=== PATIENT | female | born 1990 | race American Indian/Alaskan Native ===

== ENCOUNTER 2018-02-10 11:06 | Emergency (ER) | payer SELFPAY ==
[2018-02-10 11:14] VITALS: BP 101/67
== END 2018-02-10 15:50 | disposition left against medical advice (07) ==
LOC: ED 11:06
DX: M79.644 Pain in right finger(s) (principal); Z53.21 Procedure and treatment not carried out due to patient leaving prior to being seen by health care provider

== ENCOUNTER 2020-04-09 16:11 | Emergency (ER) | payer SELFPAY ==
[2020-04-09 17:30] VITALS: BP 111/78
== END 2020-04-09 19:23 | disposition left against medical advice (07) ==
LOC: ED 16:11
DX: R10.9 Unspecified abdominal pain (principal); Z53.21 Procedure and treatment not carried out due to patient leaving prior to being seen by health care provider

== ENCOUNTER 2021-02-05 18:14 | Emergency (ER) | payer SELFPAY ==
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
[2021-02-05 18:26] VITALS: BP 106/65
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
[2021-02-05] MEDS ORDERED: TETANUS,DIPH,PERTUSS(ACELL) VACCINE 0.5 ML SYRINGE IM ONE (19:20)
== END 2021-02-05 19:30 | disposition home or self-care (01) ==
LOC: ED 18:14
DX: S00.03XA Contusion of scalp, initial encounter (principal); S00.83XA Contusion of other part of head, initial encounter; F17.200 Nicotine dependence, unspecified, uncomplicated; Z98.51 Tubal ligation status; Z91.040 Latex allergy status; Z98.890 Other specified postprocedural states; Y04.8XXA Assault by other bodily force, initial encounter; Y93.89 Activity, other specified; Y92.89 Other specified places as the place of occurrence of the external cause; Y99.8 Other external cause status
CPT/HCPCS: 70450; 70486; 99283

== ENCOUNTER 2021-10-05 13:08 | Emergency (ER) | payer SELFPAY | END 2021-10-05 19:00 | disposition left against medical advice (07) | LOC: ED 13:08 | DX: U07.1 COVID-19 (principal); Z53.21 Procedure and treatment not carried out due to patient leaving prior to being seen by health care provider ==

== ENCOUNTER 2021-12-09 09:04 | Emergency (ER) | payer SELFPAY ==
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
[2021-12-09] MEDS ORDERED: LIDOCAINE-MPF (1%) 10 MG/1 ML VIAL 5 ML INFILTRATI ONE (14:18)
[2021-12-09 14:48] VITALS: BP 100/58
== END 2021-12-09 14:47 | disposition home or self-care (01) ==
LOC: ED 09:04
DX: S61.451A Open bite of right hand, initial encounter (principal); T19.2XXA Foreign body in vulva and vagina, initial encounter; L03.113 Cellulitis of right upper limb; Z98.890 Other specified postprocedural states; Z87.891 Personal history of nicotine dependence; Z91.041 Radiographic dye allergy status; Z91.040 Latex allergy status; W50.3XXA Accidental bite by another person, initial encounter; Y93.89 Activity, other specified; Y92.89 Other specified places as the place of occurrence of the external cause; Y99.8 Other external cause status
CPT/HCPCS: 96372; 99283; J0696; J3490